=== PATIENT | female | born 1980 | race American Indian/Alaskan Native ===

== ENCOUNTER 2021-09-20 00:49 | Emergency (ER) | payer MEDICAID, OTHER ==
[2021-09-20 01:08] VITALS: BP 139/79; PULSE 78
[2021-09-20] MEDS ORDERED: Ibuprofen 600 MG Tab PO ONE (02:51)
== END 2021-09-20 03:40 | disposition home or self-care (01) ==
LOC: DL.ED 00:49
DX: S90.32XA Contusion of left foot, initial encounter (principal); R60.0 Localized edema; I10 Essential (primary) hypertension; E66.9 Obesity, unspecified; Z79.899 Other long term (current) drug therapy; Z68.41 Body mass index [BMI] 40.0-44.9, adult; X50.0XXA Overexertion from strenuous movement or load, initial encounter; Y93.01 Activity, walking, marching and hiking
CPT/HCPCS: 73630-LT; 99283-25; A9270-GY

== ENCOUNTER 2025-05-24 08:26 | Emergency (ER) | payer OTHER ==
[2025-05-24 08:56] VITALS: BP 121/58; PULSE 84
[2025-05-24] MEDS: Diphtheria,Pertussis(Acell),Tetanus Vaccine 0.5 ML Syringe IM ONE (09:14)
== END 2025-05-24 09:27 | disposition home or self-care (01) ==
LOC: DL.ED 08:26
DX: S61.552A Open bite of left wrist, initial encounter (principal); I10 Essential (primary) hypertension; E11.9 Type 2 diabetes mellitus without complications; Z79.899 Other long term (current) drug therapy; W54.0XXA Bitten by dog, initial encounter; Y93.89 Activity, other specified
CPT/HCPCS: 90471; 90715; 99283-25